=== PATIENT | male | born 1965 | race Caucasian/White ===

== ENCOUNTER 2019-02-25 16:15 | Emergency (ER) | payer OTHER ==
[~2019-02-25] VITALS: Ht 167.6 cm; Wt 93.0 kg
[2019-02-25 16:20] VITALS: Ht 167.6 cm; Wt 93.0 kg
[2019-02-25 17:31] LABS: BASOPHIL % 0.3 % (0-2); PLATELET COUNT 199 x10^3mcL (130-400)
[2019-02-25 17:35] LABS: RED CELL DISTRIBUTION WIDTH 15.1 % (11.5-14.5)
[2019-02-25 17:40] LABS: CARBON DIOXIDE 26.9 mmol/L (21-32); CHLORIDE SERUM 105 mmol/L (98-107); CREATININE SERUM 1.3 mg/dL (0.7-1.3); GFR1 > 60 mL/min; GLUCOSE SERUM 151 mg/dL (74-106); POTASSIUM SERUM 4.2 mmol/L (3.5-5.1); SODIUM SERUM 141 mmol/L (136-145)
[2019-02-25 17:44] LABS: ALKALINE PHOSPHATASE 91 U/L (46-116); ALT/SGPT 67 U/L (16-63); AST/SGOT 34 U/L (15-37); BILIRUBIN TOTAL 0.5 mg/dL (0.20-1.00); URIC ACID 6.4 mg/dL (3.5-7.2)
[2019-02-25 19:09] VITALS: BP 153/86
== END 2019-02-25 19:36 | disposition home or self-care (01) ==
LOC: ED 16:15
PROVIDERS: Emergency Medicine
DX: M54.9 Dorsalgia, unspecified (principal); N23 Unspecified renal colic; R11.10 Vomiting, unspecified
CPT/HCPCS: J1885; J2405